=== PATIENT | male | born 1990 | race American Indian/Alaskan Native ===

== ENCOUNTER 2018-04-15 13:35 | Emergency (ER) | payer BC ==
[2018-04-15 13:57] VITALS: BP 122/74; PULSE 81; TEMP 98; O2SAT 97
--- NOTE | 2018-04-15 14:47 | C.PDOC ---
History Of Present Illness 27-year-old male presents to the ED complaining of left lower leg pain onset 4 days ago. Denies any fall or blunt trauma. Patient notes the pain began while at work, where he stands for prolonged periods of time. Sunday he noticed some swelling near the front of his dumas. He denies having prior episodes of similar pain in the past. Otherwise denies any calf pain/swelling, numbness, tingling, or focal weakness. Time Seen by Provider: 04/15/18 14:34 Chief Complaint (Nursing): Lower Extremity Problem/Injury History Per: Patient History/Exam Limitations: no limitations Onset/Duration Of Symptoms: Days Current Symptoms Are (Timing): Still Present Past Medical History Reviewed: Historical Data, Nursing Documentation, Vital Signs Vital Signs: Last Vital Signs Temp 98 F 04/15/18 13:55 Pulse 81 04/15/18 13:55 Resp 20 04/15/18 15:16 BP 122/74 04/15/18 13:55 Pulse Ox 97 04/15/18 15:08 - Medical History PMH: No Chronic Diseases Family History: States: No Known Family Hx - Social History Hx Tobacco Use: No Hx Alcohol Use: No Hx Substance Use: No Review Of Systems Except As Marked, All Systems Reviewed And Found Negative. Musculoskeletal: Positive for: Leg Pain (left udmas). Negative for: Other (calf pain/swelling) Neurological: Negative for: Weakness, Numbness, Incoordination Physical Exam - Physical Exam Appears: Well, Non-toxic, No Acute Distress Skin: Normal Color, Warm, No Rash Head: Atraumatic, Normacephalic Eye(s): bilateral: Normal Inspection Oral Mucosa: Moist Neck: Normal ROM, Supple Chest: Symmetrical Respiratory: No Accessory Muscle Use Extremity: Normal ROM, No Tenderness, No Calf Tenderness (or calf swelling), No Deformity, Swelling (mild swelling to the left anterior tibia) Pulses: Left Dorsalis Pedis: Normal, Right Dorsalis Pedis: Normal Neurological/Psych: Oriented x3, Normal Speech, Other (No focal deficits) ED Course And Treatment O2 Sat by Pulse Oximetry: 97 (RA) Pulse Ox Interpretation: Normal Medical Decision Making Medical Decision Making: Plan: --X-ray left tib/fib --Motrin 600 mg PO No signs of DVT or arterial insufficency. The xrays are negative and the physical exam is consistent with dumas splints. Disposition - Disposition Referrals: Monika Last MD [Staff Provider] - Disposition: HOME/ ROUTINE Disposition Time: 15:07 Condition: GOOD Additional Instructions: Follow up with the medical doctor/clinic within 1-2 days without fail. Return if worsened. 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 - Scribe Statement The provider has reviewed the documentation as recorded by the Scribe (Leda Crenshaw) All medical record entries made by the Scribe were at my direction and personally dictated by me. I have reviewed the chart and agree that the record accurately reflects my personal performance of the history, physical exam, medical decision making, and the department course for this patient. I have also personally directed, reviewed, and agree with the discharge instructions and disposition.
--- NOTE | 2018-04-15 15:01 | RAD ---
PROCEDURE: Radiographs of the left tibia and fibula. HISTORY: pain to the dumas COMPARISON: None available. TECHNIQUE: Frontal and lateral views obtained. FINDINGS: BONES: No fracture or destructive lesion. JOINT SPACES: Unremarkable. OTHER FINDINGS: None. IMPRESSION: Unremarkable radiographs of the left tibia and fibula.
[2018-04-15 15:16] VITALS: RESP 20
== END 2018-04-15 15:16 | disposition home or self-care (01) ==
LOC: C.ER 13:35
DX: S86.892A Other injury of other muscle(s) and tendon(s) at lower leg level, left leg, initial encounter (principal); X50.1XXA Overexertion from prolonged static or awkward postures, initial encounter; Y92.89 Other specified places as the place of occurrence of the external cause; Y99.8 Other external cause status

== ENCOUNTER 2018-04-22 19:26 | Emergency (ER) | payer BC ==
[2018-04-22 19:42] VITALS: BP 136/86; PULSE 79; RESP 14; TEMP 98.5; O2SAT 98
--- NOTE | 2018-04-22 20:27 | C.PDOC ---
History Of Present Illness 27 year old male presents to the ED with complaints of left leg pain for 1 week. Patient was seen here and given a prescription for naproxen. He reports taking it every other day with mild relief. States he has to be on his feet all day for work, and is continuing to have pain. Today patient hit his leg against corner of a wall, which aggravated the pain, and is requesting medication for exacerbation of pain. Otherwise denies any numbness, tingling, or extremity weakness. Time Seen by Provider: 04/22/18 19:46 Chief Complaint (Nursing): Lower Extremity Problem/Injury History Per: Patient History/Exam Limitations: no limitations Onset/Duration Of Symptoms: Days Current Symptoms Are (Timing): Still Present Past Medical History Reviewed: Historical Data, Nursing Documentation, Vital Signs Vital Signs: Last Vital Signs Temp 98.5 F 04/22/18 19:38 Pulse 79 04/22/18 19:38 Resp 14 04/22/18 19:38 BP 136/86 04/22/18 19:38 Pulse Ox 98 04/22/18 21:09 - Medical History PMH: No Chronic Diseases Surgical History: No Surg Hx Family History: States: No Known Family Hx - Social History Hx Tobacco Use: No Hx Alcohol Use: Yes Hx Substance Use: Yes - Immunization History Hx Tetanus Toxoid Vaccination: No Hx Influenza Vaccination: No Hx Pneumococcal Vaccination: No Review Of Systems Except As Marked, All Systems Reviewed And Found Negative. Musculoskeletal: Positive for: Leg Pain Skin: Negative for: Lesions, Bruising Neurological: Negative for: Weakness, Numbness, Incoordination Physical Exam - Physical Exam Appears: Well, Non-toxic, No Acute Distress Skin: Warm, Dry, No Rash Head: Atraumatic, Normacephalic Eye(s): bilateral: Normal Inspection Oral Mucosa: Moist Neck: Normal ROM, Supple Extremity: Normal ROM, Tenderness (To the left distal anterior tibia), Capillary Refill (< 2 sec), No Deformity, No Swelling (or erythema), No Other ( ecchymosis) Pulses: Left Dorsalis Pedis: Normal, Right Dorsalis Pedis: Normal Neurological/Psych: Oriented x3, Normal Speech, Normal Motor, Normal Sensation, Other (No focal deficits) ED Course And Treatment O2 Sat by Pulse Oximetry: 98 (room air) Pulse Ox Interpretation: Normal - Other Rad X-Ray L Tib/Fib X-Ray: Interpreted by Me, Viewed By Me Interpretation: (-) fracture or dislocation Medical Decision Making Medical Decision Making: Impression: Atraumatic left leg pain Plan: * Motrin PO * X-Ray Left Tib/Fib Progress/Updates: Patient remained afebrile alert and oriented with stable vital signs during ER evaluation. On re-examination, patient is resting comfortably in no acute distress. Patient feels comfortable going home and will be discharged. Patient given follow up instructions. Instructed to return to ER if symptoms worsen or new symptoms arise. Disposition Counseled Patient/Family Regarding: Diagnosis, Need For Followup, Rx Given - Disposition Referrals: Grecia Ansari MD [Staff Provider] - [facility] [Outside] [facility] [place] [Outside] Disposition: HOME/ ROUTINE Disposition Time: 20:24 Condition: GOOD Additional Instructions: Your xray was normal, no fracture. Please apply ice to area 15 minutes three times a day. Take Motrin as needed for pain every 6 hours, with food to not upset stomach. Follow up with orthopedic if pain persists over one week. 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 - Scribe Statement The provider has reviewed the documentation as recorded by the Scribe (Leda Crenshaw) All medical record entries made by the Scribe were at my direction and personally dictated by me. I have reviewed the chart and agree that the record accurately reflects my personal performance of the history, physical exam, medical decision making, and the department course for this patient. I have also personally directed, reviewed, and agree with the discharge instructions and disposition.
--- NOTE | 2018-04-23 10:11 | RAD ---
Date of service: 04/22/2018 PROCEDURE: Radiographs of the left tibia and fibula. HISTORY: patient request, has pain to leg, injury work COMPARISON: None available. TECHNIQUE: Frontal and lateral views obtained. FINDINGS: BONES: No fracture or destructive lesion. JOINT SPACES: Unremarkable. OTHER FINDINGS: Achilles tendon insertional enthesophyte noted. IMPRESSION: Achilles tendon insertional enthesophyte noted. Otherwise unremarkable. No fracture or osseous destruction
== END 2018-04-22 20:44 | disposition home or self-care (01) ==
LOC: C.ER 19:26
DX: S86.892A Other injury of other muscle(s) and tendon(s) at lower leg level, left leg, initial encounter (principal); W22.01XA Walked into wall, initial encounter

== ENCOUNTER 2018-06-19 15:30 | Observation (INO) | payer BC ==
--- NOTE | 2018-06-19 16:28 | C.PDOC ---
History Of Present Illness 28 year old male sent from [facility] for evaluation of headache, stiff neck, and photophobia(tolerating ambient light) that began today. Patient states he occasionally feels dizziness and chills, he notes he recently came back from [place] 4 days ago and since 2 days ago he has felt tired, out of breath, and weak as if he were getting sick. Patient has a Hx of HIV with undetectable viral load and no Hx of AIDS defining illness. Denies Hx of similar headaches, fever, nausea, or vomiting Time Seen by Provider: 06/19/18 16:10 Chief Complaint (Nursing): Headache History Per: Patient History/Exam Limitations: no limitations Onset/Duration Of Symptoms: Hrs Current Symptoms Are (Timing): Still Present Preceeding Symptoms: None Associated Symptoms: Photophobia (tolerating ambient light). denies: Blurred Vision, Nausea, Vomiting, Extremity Weakness Recent travel outside of the [place]: No Past Medical History Reviewed: Historical Data, Nursing Documentation, Vital Signs Vital Signs: Last Vital Signs Temp 98.4 F 06/19/18 15:41 Pulse 61 06/19/18 15:41 Resp 16 06/19/18 15:41 BP 143/81 06/19/18 15:41 Pulse Ox 100 06/19/18 18:53 - Medical History PMH: HIV Denies: Chronic Kidney Disease Family History: States: Unknown Family Hx - Social History Hx Tobacco Use: No Hx Alcohol Use: Yes Hx Substance Use: Yes - Immunization History Hx Tetanus Toxoid Vaccination: No Hx Influenza Vaccination: No Hx Pneumococcal Vaccination: No Review Of Systems Except As Marked, All Systems Reviewed And Found Negative. Constitutional: Positive for: Chills, Malaise. Negative for: Fever Cardiovascular: Negative for: Chest Pain, Palpitations Respiratory: Negative for: Cough, Shortness of Breath Gastrointestinal: Negative for: Nausea, Vomiting Musculoskeletal: Positive for: Other (Neck stiffness) Neurological: Positive for: Headache, Dizziness, Other (Photophobia but tolerating ambient light). Negative for: Weakness, Numbness Physical Exam - Physical Exam Appears: Non-toxic Skin: Normal Color, Warm, Dry Head: Atraumatic, Normacephalic Eye(s): bilateral: Normal Inspection, PERRL, EOMI Oral Mucosa: Moist Neck: Normal, Supple Chest: Symmetrical, No Tenderness Cardiovascular: Rhythm Regular Respiratory: Normal Breath Sounds, No Rales, No Rhonchi, No Wheezing Gastrointestinal/Abdominal: Soft, No Tenderness Back: No CVA Tenderness Extremity: Normal ROM (x4) Neurological/Psych: Oriented x3, Normal Speech, Normal Motor, Normal Sensation ED Course And Treatment - Laboratory Results Result Diagrams: 06/19/18 17:07 06/19/18 17:07 O2 Sat by Pulse Oximetry: 100 (Room air) Pulse Ox Interpretation: Normal Progress - Re-Evaluation Re-evaluation Note: 06/19/18 18:15 APPEARS COMFORTABLE NAD. PS FEELS BETTER, HERNANDEZ RESOLVED. NO PHOTOPHOBIA, NECK SUPPLE. NEURO NO FOCAL DEF, UNCH PRIOR. PENDING HEAD CT NO CLINICAL SIGNS BACTERIAL MENINGITIS. RISKS/BENEFITS SPINAL TAP D/W PATIENT, VOICES UNDERSTANDING. PENDING CT. 06/19/18 18:52 D/W DR HERNANDEZ AWARE OF ER FINDINGS. ADVISES OBS, CONT ANTIVIRAL 06/19/18 18:56 D/W DR STEPHANIE MARINELLI [employer] WILL ADMIT - Data Reviewed Data Reviewed: Lab, Diagnostic imaging, Old records Medical Decision Making Medical Decision Making: Plan: * CT head * Blood work * Urinalysis * Decadron * Depacon * Mag sulfate * Reglan * Toradol * IV fluids Disposition Counseled Patient/Family Regarding: Studies Performed, Diagnosis - Disposition Disposition: HOSPITALIZED Disposition Time: 18:58 Condition: STABLE Forms: [facility] (Sinhala) - POA Present On Arrival: None - Clinical Impression Clinical Impression: Headache, HIV infection - Scribe Statement The provider has reviewed the documentation as recorded by the Scribeleanor Sevilla All medical record entries made by the Scribe were at my direction and personally dictated by me. I have reviewed the chart and agree that the record accurately reflects my personal performance of the history, physical exam, medical decision making, and the department course for this patient. I have also personally directed, reviewed, and agree with the discharge instructions and disposition.
[2018-06-19] MEDS ORDERED: Dexamethasone 4 mg/1 ml IVP STA (16:29)
[2018-06-19] MEDS ORDERED: Magnesium Sulfate 1 gm in D5W 1 GM/100 ML BAG IVPB STA (16:29)
[2018-06-19] MEDS ORDERED: Sodium Chloride 0.9% 1,000 ML IV ONE (16:30)
[2018-06-19] MEDS ORDERED: Magnesium Sulfate 1 gm in D5W 1 GM/100 ML BAG IVPB ONE (16:49)
[2018-06-19] MEDS ORDERED: Dexamethasone 4 mg/1 ml ONE (16:49)
[2018-06-19 16:51] LABS: URINE BILIRUBIN NEGATIVE (NEGATIVE); URINE BLOOD NEGATIVE (NEGATIVE); URINE CLARITY Clear (Clear); URINE COLOR Straw (YELLOW); URINE GLUCOSE (UA) NORMAL (Normal); URINE LEUKOCYTE ESTERASE NEG Leu/uL (Negative); URINE PROTEIN NEGATIVE (NEGATIVE); URINE UROBILINOGEN NORMAL mg/dL (0.2-1.0)
--- NOTE | 2018-06-19 16:53 | CT ---
Date of service: 06/19/2018 PROCEDURE: CT HEAD WITHOUT CONTRAST. HISTORY: Headache HO HIV COMPARISON: None available. TECHNIQUE: Axial computed tomography images were obtained through the head/brain without intravenous contrast. Radiation dose: Total exam DLP = 1052.07 mGy-cm. This CT exam was performed using one or more of the following dose reduction techniques: Automated exposure control, adjustment of the mA and/or kV according to patient size, and/or use of iterative reconstruction technique. FINDINGS: HEMORRHAGE: No intracranial hemorrhage. BRAIN: Normal barrett-white matter differentiation and density are appreciated throughout the cerebrum and cerebellum with the brainstem appearing unremarkable as well. There is no mass effect. There is no suspicious extra-axial fluid collection and the midline brain anatomy appears diffusely unremarkable. VENTRICLES: Unremarkable. No hydrocephalus. CALVARIUM: Unremarkable. PARANASAL SINUSES: Unremarkable as visualized. No significant inflammatory changes. MASTOID AIR CELLS: Unremarkable as visualized. No inflammatory changes. OTHER FINDINGS: None. IMPRESSION: Unremarkable noncontrast head CT.
[2018-06-19] MEDS ORDERED: Valproate 500 MG in Sodium Chloride 0.9% 100 ML IVPB STA (17:07)
[2018-06-19 17:11] LABS: BASO % 0.9 % (0.0-2.0); EOS % 0.6 % (0.0-4.0); HEMOGLOBIN 14.7 g/dL (12.0-18.0); LYMPH # 1.7 K/uL (1.0-4.3); LYMPH % 62.4 % (20.0-40.0); MEAN CELL VOLUME 99.8 fL (80.0-94.0); MEAN CORPUSCULAR HEMOGLOBIN 34.2 pg (27.0-31.0); MEAN CORPUSCULAR HGB CONC 34.2 g/dL (33.0-37.0); MEAN PLATELET VOLUME 8.5 fL (7.2-11.7); MONO # 0.2 K/uL (0.0-0.8); MONO % 8.4 % (0.0-10.0); NEUT # 0.8 K/uL (1.8-7.0); NEUT % 27.7 % (50.0-75.0); NRBC % 0.4 % (0.0-2.0); RBC 4.3 Mil/uL (4.40-5.90); RED CELL DISTRIBUTION WIDTH 12.7 % (11.5-14.5); WHITE BLOOD COUNT 2.7 K/uL (4.8-10.8)
[2018-06-19 17:22] LABS: ALB/GLOB RATIO 1.7 (1.0-2.1); ALBUMIN 4.4 g/dL (3.5-5.0); ALT/SGPT 30 U/L (21-72); AST/SGOT 28 U/L (17-59); BLOOD UREA NITROGEN 11 mg/dL (9-20); CALCIUM 9.5 mg/dl (8.6-10.4); GFR NON-AFRICAN AMERICAN > 60
--- NOTE | 2018-06-19 17:53 | RAD ---
HISTORY: WEAKNESS, HO HIV COMPARISON: None available. TECHNIQUE: Chest PA and lateral FINDINGS: LUNGS: No focal consolidation. Tiny scattered probable calcified granulomas. Please note that chest x-ray has limited sensitivity for the detection of pulmonary masses. PLEURA: No significant pleural effusion identified. No definite pneumothorax . CARDIOVASCULAR: Heart size appears within normal limits. OSSEOUS STRUCTURES: No acute osseous abnormality identified. VISUALIZED UPPER ABDOMEN: Unremarkable. OTHER FINDINGS: Bilateral nipple rings. IMPRESSION: No focal consolidation, significant pleural effusion, or definite pneumothorax identified.
[2018-06-19] MEDS ORDERED: Iodixanol 320 MG/ML 100 ML BOTTLE IV ONE (18:44)
[2018-06-19] MEDS ORDERED: Apap-Butalbital-Caffeine 325-50-40mg Tab PO PRN (21:15)
--- NOTE | 2018-06-20 09:04 | CT ---
Date of service: 06/19/2018 PROCEDURE: CT HEAD WITH CONTRAST HISTORY: Headache. History of HIV. COMPARISON: None available. TECHNIQUE: Axial computed tomography images were obtained through the head/brain with intravenous contrast. Radiation dose: Total exam DLP = 1207 mGy-cm. This CT exam was performed using one or more of the following dose reduction techniques: Automated exposure control, adjustment of the mA and/or kV according to patient size, and/or use of iterative reconstruction technique. FINDINGS: HEMORRHAGE: No intracranial hemorrhage. BRAIN: No mass, mass effect or edema. No abnormal intracranial enhancement. No atrophy or chronic microvascular ischemic changes. VENTRICLES: Unremarkable. No hydrocephalus. CALVARIUM: Unremarkable. PARANASAL SINUSES: Unremarkable as visualized. No significant inflammatory changes. MASTOID AIR CELLS: Unremarkable as visualized. No mastoid effusion. OTHER FINDINGS: None. IMPRESSION: No acute intracranial abnormality. No enhancing nodules or ring enhancing lesions. If symptoms persist, consider correlation with MRI. These findings were preliminarily reported at 7:36 p.m. on 06/19/[address] Buster Khan from [facility].
[2018-06-20] MEDS ORDERED: EMTRICITA PO SCH ×2 (10:00)
[2018-06-20] MEDS ORDERED: [UNRECOGNIZED DRUG - OTHER] PO SCH ×2 (10:00)
[2018-06-20] MEDS ORDERED: TENOFOVIR PO SCH ×2 (10:00)
--- NOTE | 2018-06-20 10:15 | CP.PCM.PN ---
Subjective - Date & Time of Evaluation Date of Evaluation: 06/20/18 Time of Evaluation: 10:10 - Subjective Subjective: PGY3 progress note for Dr. Victor 28 year old male with past medical history of HIV on treatment presented to hospital for headache, weakness and lightheadedness that began yesterday. Patient states that he had recurrent episodes of lightheadedness/vertigo throughout the day when he was walking. No LOC or syncopal episode. Patient denied having any weakness, numbness/tingling in extremities. Patient also c/o mild right sided neck pain without stiffness or radiation. Headache also began yesterday, was located diffusely and was accompanied with minor blurry vision. Pt didn't use anything for his symptoms. Patient states he recently returned from [place] 4 days ago. Denied going on any camping trips, tick/insect bites , or outdoor activities. Pt seen and examined this morning. Denies having any HERNANDEZ, vision changes, neck pain or stiffness, F/C, CP, SOB, abd pain, N/V/D/C, rashes, extremity weakness/ numbness/tingling. Pt states he is able to walk to bathroom without lightheadedness. PMHx: stated above Sx: denies Social: occasional ETOH, tobacco use. Smokes marijuana regularly FHx: HTN, DM Objective - Vital Signs/Intake and Output Vital Signs (last 24 hours): Temp Pulse Resp BP Pulse Ox 97.5 F L 55 L 20 131/68 100 06/20/18 08:00 06/20/18 08:00 06/20/18 08:00 06/20/18 08:00 06/20/18 08:00 - Medications Medications: Current Medications Acetaminophen/Butalbital/Caffeine (Fioricet) 1 tab PO Q4 PRN PRN Reason: Headache Last Admin: 06/19/18 21:49 Dose: 1 tab Enoxaparin Sodium (Lovenox) 40 mg SC DAILY [facility] Home Med (Emtricita/Rilpivir/Tenofovir) 1 tab PO DAILY [facility] Lorazepam (Ativan) 1 mg IVP ONCE PRN PRN Reason: Anxiety - Labs Labs: 06/19/18 17:07 06/19/18 17:07 - Constitutional Appears: Non-toxic, No Acute Distress - Head Exam Head Exam: ATRAUMATIC, NORMOCEPHALIC - Eye Exam Eye Exam: EOMI Pupil Exam: NORMAL ACCOMODATION, PERRL - ENT Exam ENT Exam: Mucous Membranes Moist, Normal Oropharynx Additional comments: no rash inside mouth - Respiratory Exam Respiratory Exam: Clear to Ausculation Bilateral. absent: Accessory Muscle Use , Rales, Rhonchi, Wheezes, Respiratory Distress - Cardiovascular Exam Cardiovascular Exam: REGULAR RHYTHM, +S1, +S2. absent: Gallop, Rubs, Murmur - GI/Abdominal Exam GI & Abdominal Exam: Soft, Normal Bowel Sounds. absent: Distended, Firm, Guarding, Rigid, Tenderness, Organomegaly - Extremities Exam Extremities Exam: absent: Pedal Edema, Tenderness - Neurological Exam Neurological Exam: Alert, Awake, CN II-XII Intact, Oriented x3 Neuro motor strength exam: Left Upper Extremity: 5, Right Upper Extremity: 5, Left Lower Extremity: 5, Right Lower Extremity: 5 Additional comments: normal sensation in upper and lower extremities. - Psychiatric Exam Psychiatric exam: Normal Affect, Normal Mood - Skin Skin Exam: Dry, Intact, Normal Color, Warm. absent: Rash Assessment and Plan - Assessment and Plan (Free Text) Assessment: 28 year old male with past medical history of HIV is admitted for headache. Headache - Improved - Initial CT of head was negative. Repeat CT was also negative - On admission, pt had WBC count of 2.7 (likely due to hx of HIV). Afebrile on admission - On admission, pt received decadron 8 mg IVP, Toradol 30 mg IVP, Mag sulfate 1 gm once, Reglan, Depakote 500 mg IV and IV hydration - Neurology, Dr. Fierro consulted - ID, Dr. Abrams consulted - Will check MRI of brain HIV - Will check CD4 count and viral load - Continue home medication: Complera 200/25/300 mg QD - ID, Dr. Abrams consulted Prophylaxis - SCDs, lovenox - no GI prophylaxis indicated All orders and management per Dr. Victor
[2018-06-20] MEDS: Enoxaparin 40 mg Syringe SC SCH (10:21)
[2018-06-20 12:05] LABS: BASO % 0.5 % (0.0-2.0); HEMOGLOBIN 15.9 g/dL (12.0-18.0); LYMPH % 28.2 % (20.0-40.0); MEAN CELL VOLUME 99.3 fL (80.0-94.0); MEAN CORPUSCULAR HEMOGLOBIN 33.7 pg (27.0-31.0); MEAN CORPUSCULAR HGB CONC 33.9 g/dL (33.0-37.0); MEAN PLATELET VOLUME 9.2 fL (7.2-11.7); MONO # 0.5 K/uL (0.0-0.8); MONO % 6.6 % (0.0-10.0); NEUT # 4.6 K/uL (1.8-7.0); NEUT % 64.7 % (50.0-75.0); NRBC % 0.1 % (0.0-2.0); RBC 4.71 Mil/uL (4.40-5.90); RED CELL DISTRIBUTION WIDTH 12.4 % (11.5-14.5)
[2018-06-20 12:09] LABS: WHITE BLOOD COUNT 7.1 K/uL (4.8-10.8)
[2018-06-20 12:14] LABS: INR 1.1; PROTHROMBIN TIME 11.8 SECONDS (9.7-12.2)
[2018-06-20 12:20] LABS: ALB/GLOB RATIO 1.7 (1.0-2.1); ALBUMIN 4.7 g/dL (3.5-5.0); ALT/SGPT 33 U/L (21-72); AST/SGOT 33 U/L (17-59); BLOOD UREA NITROGEN 9 mg/dL (9-20); CALCIUM 9.9 mg/dl (8.6-10.4); GFR NON-AFRICAN AMERICAN > 60
--- NOTE | 2018-06-20 15:22 | MRI ---
Date of service: 06/20/2018 PROCEDURE: MRI BRAIN WITHOUT CONTRAST HISTORY: headache COMPARISON: None available. TECHNIQUE: Multiplanar, multisequence MR images of the brain were obtained without intravenous contrast enhancement. FINDINGS: HEMORRHAGE: None DWI: No evidence of an acute or early subacute infarction. BRAIN PARENCHYMA: No mass effect or edema. No atrophy or chronic microvascular ischemic changes. VENTRICLES: Unremarkable. No hydrocephalus. CRANIUM: Unremarkable. ORBITS: Grossly unremarkable. PARANASAL SINUSES/MASTOIDS: Clear VASCULAR SYSTEM: Skull base flow voids intact. OTHER FINDINGS: None. IMPRESSION: Unremarkable non contrast enhanced MRI of the brain.
--- NOTE | 2018-06-20 17:10 | CP.PCM.CON ---
History of Present Illness - History of Present Illness History of Present Illness: PGY-2 neurology consult note for Dr Gonzalez Mr Monique is a 28yo M with a PMHx of HIV on therapy w/ undetectable viral load and migraines who presented for headache and lightheadedness x1 day. Patient states that he had recurrent episodes of lightheadedness throughout the day when he was walking which causes him to stop frequently so he could sit down. No LOC or syncopal episode and he denied room spinning sensation. Patient also c /o mild right sided neck pain without stiffness or radiation upon presentation, however upon our examination today patient did not complain of neck stiffness. Headache also began yesterday, was located diffusely and was accompanied with minor blurry vision - he's had migraines in the past and states he gets them about twice a year. Pt didn't use anything for his symptoms. Patient states he recently returned from [place] 4 days ago. Denied going on any camping trips , tick/insect bites, or outdoor activities. PMHx: HIV w/ undetectable viral load, migraines Sx: denies Social: occasional ETOH, tobacco use. Smokes marijuana regularly FHx: HTN, DM Review of Systems - Constitutional Constitutional: absent: Chills, Fever - EENT Eyes: absent: Blind Spots, Blurred Vision Ears: absent: Tinnitus - Cardiovascular Cardiovascular: absent: Chest Pain - Respiratory Respiratory: absent: Cough, Dyspnea - Gastrointestinal Gastrointestinal: absent: Abdominal Pain, Diarrhea - Genitourinary Genitourinary: absent: Dysuria - Neurological Neurological: absent: Abnormal Gait, Confusion, Convulsions, Dizziness, Numbness , Sensory Deficit, Syncope, Weakness Past Patient History - Past Social History Smoking Status: Former Smoker - CARDIAC Hx Cardiac Disorders: No - PULMONARY Hx Respiratory Disorders: No - NEUROLOGICAL Hx Neurological Disorder: No - HEENT Hx HEENT Problems: No - RENAL Hx Chronic Kidney Disease: No - ENDOCRINE/METABOLIC Hx Endocrine Disorders: No - HEMATOLOGICAL/ONCOLOGICAL Hx Human Immunodeficiency Virus (HIV): Yes - INTEGUMENTARY Hx Dermatological Problems: No - MUSCULOSKELETAL/RHEUMATOLOGICAL Hx Musculoskeletal Disorders: No - GASTROINTESTINAL Hx Gastrointestinal Disorders: No - GENITOURINARY/GYNECOLOGICAL Hx Genitourinary Disorders: No - PSYCHIATRIC Hx Substance Use: Yes - SURGICAL HISTORY Hx Surgeries: No - ANESTHESIA Hx Anesthesia: No Meds Allergies/Adverse Reactions: Allergies Allergy/AdvReac Type Severity Reaction Status Date / Time No Known Allergies Allergy Verified 06/19/18 15:45 - Medications Medications: Current Medications Acetaminophen/Butalbital/Caffeine (Fioricet) 1 tab PO Q4 PRN PRN Reason: Headache Last Admin: 06/19/18 21:49 Dose: 1 tab Enoxaparin Sodium (Lovenox) 40 mg SC DAILY KEMI Last Admin: 06/20/18 10:21 Dose: 40 mg Home Med (Emtricita/Rilpivir/Tenofovir) 1 tab PO DAILY KEMI Lorazepam (Ativan) 1 mg IVP ONCE PRN PRN Reason: Anxiety Physical Exam - Constitutional Appears: Well, No Acute Distress - Head Exam Head Exam: NORMAL INSPECTION - Eye Exam Eye Exam: EOMI, PERRL. absent: Nystagmus, Scleral icterus - ENT Exam ENT Exam: Mucous Membranes Moist - Respiratory Exam Respiratory Exam: Clear to Auscultation Bilateral, NORMAL BREATHING PATTERN. absent: Rales, Rhonchi, Wheezes - Cardiovascular Exam Cardiovascular Exam: REGULAR RHYTHM, +S1, +S2. absent: Tachycardia, JVD, Systolic Murmur - GI/Abdominal Exam GI & Abdominal Exam: Normal Bowel Sounds, Soft. absent: Distended, Tenderness - Extremities Exam Extremities exam: Positive for: normal inspection - Neurological Exam Neurological exam: Alert, CN II-XII Intact, Normal Gait, Oriented x3, Reflexes Normal - Expanded Neurological Exam Expanded Patient oriented to: person, place, time Speech: Fluid Speech Cranial nerves: EOM's Intact: Normal, Facial Sensation: Normal, Gag Reflex: Normal, Nystagmus: Normal, Tongue Deviation: Normal Cerebellar Function: Finger to Nose: Normal, Heel to Chou: Normal, Romberg: Normal Upper motor neuron: Babinski Sign: Normal, Jose Neglect: Normal, Pronator Drift : Normal, Sensory Extinction: Normal Sensory exam: Lower Extremity 2 Point Discrimination: Normal, Lower Extremity Light Touch: Normal, Lower Extremity Pin Prick: Normal, Lower Extremity Temperature: Normal, Upper Extremity 2 Point Discrimination: Normal, Upper Extremity Light Touch: Normal, Upper Extremity Pin Prick: Normal, Upper Extremity Temperature: Normal Neuro motor strength exam: Left Upper Extremity: 5, Right Upper Extremity: 5, Left Lower Extremity: 5, Right Lower Extremity: 5 DTR: Patellar Left: 2+, Patellar Right: 2+ Coma Scale Eye Opening: SPONTANEOUS Coma Scale Motor Response: OBEYS COMMANDS Coma Scale Verbal: Oriented Coma Scale Total: 15 Results - Vital Signs Recent Vital Signs: Last Vital Signs Temp 97.9 F 06/20/18 14:00 Pulse 53 L 06/20/18 14:00 Resp 20 06/20/18 14:00 BP 110/57 L 06/20/18 14:00 Pulse Ox 100 06/20/18 14:00 - Labs Result Diagrams: 06/20/18 12:00 06/20/18 12:00 Labs: Laboratory Results - last 24 hr 06/19/18 06/19/18 06/20/18 17:07 17:07 12:00 WBC 2.7 L 7.1 D RBC 4.30 L 4.71 Hgb 14.7 15.9 Hct 42.9 46.8 MCV 99.8 H 99.3 H MCH 34.2 H 33.7 H MCHC 34.2 33.9 RDW 12.7 12.4 Plt Count 168 200 MPV 8.5 9.2 Neut % (Auto) 27.7 L 64.7 Lymph % (Auto) 62.4 H 28.2 [place] % (Auto) 8.4 6.6 Eos % (Auto) 0.6 0.0 Baso % (Auto) 0.9 0.5 Neut # (Auto) 0.8 L 4.6 Lymph # (Auto) 1.7 2.0 [place] # (Auto) 0.2 0.5 Eos # (Auto) 0.0 0.0 Baso # (Auto) 0.0 0.0 PT INR APTT Sodium 141 Potassium 4.8 Chloride 105 Carbon Dioxide 32 H Anion Gap 10 BUN 11 Creatinine 0.8 Est GFR ( Amer) > 60 Est GFR (Non-Af Amer) > 60 Random Glucose 85 Calcium 9.5 Phosphorus Magnesium Total Bilirubin 0.8 AST 28 ALT 30 Alkaline Phosphatase 102 Total Protein 7.1 Albumin 4.4 Globulin 2.7 Albumin/Globulin Ratio 1.7 06/20/18 06/20/18 12:00 12:00 WBC RBC Hgb Hct MCV MCH MCHC RDW Plt Count MPV Neut % (Auto) Lymph % (Auto) [place] % (Auto) Eos % (Auto) Baso % (Auto) Neut # (Auto) Lymph # (Auto) [place] # (Auto) Eos # (Auto) Baso # (Auto) PT 11.8 INR 1.1 APTT 42 H Sodium 142 Potassium 4.5 Chloride 103 Carbon Dioxide 28 Anion Gap 16 BUN 9 Creatinine 0.8 Est GFR ( Amer) > 60 Est GFR (Non-Af Amer) > 60 Random Glucose 88 Calcium 9.9 Phosphorus 3.7 Magnesium 2.1 Total Bilirubin 2.0 H AST 33 ALT 33 Alkaline Phosphatase 85 Total Protein 7.6 Albumin 4.7 Globulin 2.9 Albumin/Globulin Ratio 1.7 Assessment & Plan - Assessment and Plan (Free Text) Plan: Mr Monique is a 28yo M with a PMHx of HIV on therapy w/ undetectable viral load and migraines who presented for headache and lightheadedness x1 day: Acute Migraine -Symptoms likely related to migraine w/ visual disturbance, patient w/ hx of migraine, imaging collected has been negative, no neurological deficits noted, no seizure activity -F/U CD4 count and viral load, although this presentation is not consistent with HIV encephalopathy -CT head w/ contrast: * No acute intracranial abnormality. No enhancing nodules or ring enhancing lesions. If symptoms persist, consider correlation with MRI. -CT head w/o contrast: * Unremarkable noncontrast head CT. -MRI Brain w/o contrast: * Unremarkable non contrast enhanced MRI of the brain. -To treat migraines after onset of migraine: sumatriptan 50mg po q2days as needed -Start vitamin B6 50mg po qd -Continue fiorocet 1 tab po q4h prn Case discussed with Dr Gonzalez
--- NOTE | 2018-06-20 18:47 | CP.PCM.CON ---
History of Present Illness - History of Present Illness History of Present Illness: 28yo M with a PMHx of HIV on therapy since 2011 presents with headaches Last CD4 unknown but believed to be > 200 last Viral load unknown recently stoped his HAART rx c/o bifrontal headache , no visual disturbance or neck stiffness recent trip to [facility] no ill contacts PMHx: HIV w/ undetectable viral load, migraines Sx: denies Social: occasional ETOH, tobacco use. FHx: HTN, DM Review of Systems - Constitutional Constitutional: absent: Chills, Fever - EENT Eyes: absent: Blind Spots, Blurred Vision Ears: absent: Tinnitus - Cardiovascular Cardiovascular: absent: Chest Pain - Respiratory Respiratory: absent: Cough, Dyspnea - Gastrointestinal Gastrointestinal: absent: Abdominal Pain, Diarrhea - Genitourinary Genitourinary: absent: Dysuria - Neurological Neurological: absent: Abnormal Gait, Confusion, Convulsions, Dizziness, Numbness , Sensory Deficit, Syncope, Weakness Past Patient History - Past Social History Smoking Status: Former Smoker - CARDIAC Hx Cardiac Disorders: No - PULMONARY Hx Respiratory Disorders: No - NEUROLOGICAL Hx Neurological Disorder: No - HEENT Hx HEENT Problems: No - RENAL Hx Chronic Kidney Disease: No - ENDOCRINE/METABOLIC Hx Endocrine Disorders: No - HEMATOLOGICAL/ONCOLOGICAL Hx Human Immunodeficiency Virus (HIV): Yes - INTEGUMENTARY Hx Dermatological Problems: No - MUSCULOSKELETAL/RHEUMATOLOGICAL Hx Musculoskeletal Disorders: No - GASTROINTESTINAL Hx Gastrointestinal Disorders: No - GENITOURINARY/GYNECOLOGICAL Hx Genitourinary Disorders: No - PSYCHIATRIC Hx Substance Use: Yes - SURGICAL HISTORY Hx Surgeries: No - ANESTHESIA Hx Anesthesia: No Meds Allergies/Adverse Reactions: Allergies Allergy/AdvReac Type Severity Reaction Status Date / Time No Known Allergies Allergy Verified 06/19/18 15:45 - Medications Medications: Current Medications Acetaminophen/Butalbital/Caffeine (Fioricet) 1 tab PO Q4 PRN PRN Reason: Headache Last Admin: 06/19/18 21:49 Dose: 1 tab Enoxaparin Sodium (Lovenox) 40 mg SC DAILY KEMI Last Admin: 06/20/18 10:21 Dose: 40 mg Home Med (Emtricita/Rilpivir/Tenofovir) 1 tab PO DAILY KEMI Lorazepam (Ativan) 1 mg IVP ONCE PRN PRN Reason: Anxiety Pyridoxine HCl (Vitamin B6) 25 mg PO DAILY KEMI Sumatriptan Succinate (Imitrex Tab) 50 mg PO Q2D PRN PRN Reason: Migraine headache Physical Exam - Constitutional Appears: Non-toxic, Chronically Ill - Head Exam Head Exam: NORMOCEPHALIC - Eye Exam Eye Exam: PERRL. absent: Scleral icterus - ENT Exam ENT Exam: Mucous Membranes Dry - Neck Exam Neck exam: Negative for: Lymphadenopathy - Respiratory Exam Respiratory Exam: Decreased Breath Sounds - Cardiovascular Exam Cardiovascular Exam: REGULAR RHYTHM - GI/Abdominal Exam GI & Abdominal Exam: Diminished Bowel Sounds, Soft. absent: Tenderness - Rectal Exam Rectal Exam: Deferred - Exam Exam: NORMAL INSPECTION - Extremities Exam Extremities exam: Positive for: pedal pulses present. Negative for: calf tenderness, pedal edema, tenderness - Back Exam Back exam: absent: CVA tenderness (L), CVA tenderness (R) - Neurological Exam Neurological exam: Alert, CN II-XII Intact, Oriented x3, Reflexes Normal - Psychiatric Exam Psychiatric exam: Normal Mood - Skin Skin Exam: Dry, Intact Results - Vital Signs Recent Vital Signs: Last Vital Signs Temp 97.9 F 06/20/18 14:00 Pulse 53 L 06/20/18 14:00 Resp 20 06/20/18 14:00 BP 110/57 L 06/20/18 14:00 Pulse Ox 100 06/20/18 14:00 - Labs Result Diagrams: 06/20/18 12:00 06/20/18 12:00 Labs: Laboratory Results - last 24 hr 06/20/18 06/20/18 06/20/18 12:00 12:00 12:00 WBC 7.1 D RBC 4.71 Hgb 15.9 Hct 46.8 MCV 99.3 H MCH 33.7 H MCHC 33.9 RDW 12.4 Plt Count 200 MPV 9.2 Neut % (Auto) 64.7 Lymph % (Auto) 28.2 [place] % (Auto) 6.6 Eos % (Auto) 0.0 Baso % (Auto) 0.5 Neut # (Auto) 4.6 Lymph # (Auto) 2.0 [place] # (Auto) 0.5 Eos # (Auto) 0.0 Baso # (Auto) 0.0 PT 11.8 INR 1.1 APTT 42 H Sodium 142 Potassium 4.5 Chloride 103 Carbon Dioxide 28 Anion Gap 16 BUN 9 Creatinine 0.8 Est GFR ( Amer) > 60 Est GFR (Non-Af Amer) > 60 Random Glucose 88 Calcium 9.9 Phosphorus 3.7 Magnesium 2.1 Total Bilirubin 2.0 H AST 33 ALT 33 Alkaline Phosphatase 85 Total Protein 7.6 Albumin 4.7 Globulin 2.9 Albumin/Globulin Ratio 1.7 RPR 06/20/18 12:00 WBC RBC Hgb Hct MCV MCH MCHC RDW Plt Count MPV Neut % (Auto) Lymph % (Auto) [place] % (Auto) Eos % (Auto) Baso % (Auto) Neut # (Auto) Lymph # (Auto) [place] # (Auto) Eos # (Auto) Baso # (Auto) PT INR APTT Sodium Potassium Chloride Carbon Dioxide Anion Gap BUN Creatinine Est GFR ( Amer) Est GFR (Non-Af Amer) Random Glucose Calcium Phosphorus Magnesium Total Bilirubin AST ALT Alkaline Phosphatase Total Protein Albumin Globulin Albumin/Globulin Ratio RPR Nonreactive Assessment & Plan (1) HIV infection Status: Acute (2) Headache Status: Acute - Assessment and Plan (Free Text) Assessment: consider LP, MRI if not done check cultures T cells and viral load will follow rx reordered
[2018-06-20] MEDS ORDERED: Emtricitabine-Tenofovir 200 mg-300 mg Tab PO SCH (19:00)
--- NOTE | 2018-06-21 07:38 | CP.PCM.PN ---
Subjective - Date & Time of Evaluation Date of Evaluation: 06/21/18 Time of Evaluation: 08:00 - Subjective Subjective: PGY2 progress note for Dr. Victor Patient was seen and examined at bedside in the AM. Patient states he is feeling well and is ready to go home. Patient denies chest pain, shortness of breath, dizziness, headache, nausea, vomiting, diarrhea or constipation. Objective - Vital Signs/Intake and Output Vital Signs (last 24 hours): Temp Pulse Resp BP Pulse Ox 98 F 59 L 18 133/67 100 06/21/18 00:00 06/21/18 00:00 06/21/18 00:00 06/21/18 00:00 06/21/18 00:00 - Medications Medications: Current Medications Acetaminophen/Butalbital/Caffeine (Fioricet) 1 tab PO Q4 PRN PRN Reason: Headache Last Admin: 06/19/18 21:49 Dose: 1 tab Dolutegravir Sodium (Tivicay) 50 mg PO Q24H KEMI PRN Reason: Protocol Last Admin: 06/20/18 22:23 Dose: 50 mg Emtricitabine/Tenofovir (Truvada 200 Mg-300 Mg) 1 tab PO Q24H KEMI PRN Reason: Protocol Last Admin: 06/20/18 22:24 Dose: 1 tab Enoxaparin Sodium (Lovenox) 40 mg SC DAILY COUNTS INCLUDE 234 BEDS AT THE [facility] Last Admin: 06/20/18 10:21 Dose: 40 mg Lorazepam (Ativan) 1 mg IVP ONCE PRN PRN Reason: Anxiety Pyridoxine HCl (Vitamin B6) 25 mg PO DAILY KEMI Sumatriptan Succinate (Imitrex Tab) 50 mg PO Q2D PRN PRN Reason: Migraine headache - Labs Labs: 06/20/18 12:00 06/20/18 12:00 PT 11.8 SECONDS (9.7-12.2) 06/20/18 12:00 INR 1.1 06/20/18 12:00 APTT 42 SECONDS (21-34) H 06/20/18 12:00 - Constitutional Appears: No Acute Distress - Head Exam Head Exam: ATRAUMATIC, NORMAL INSPECTION - Eye Exam Eye Exam: EOMI, Normal appearance, PERRL Pupil Exam: NORMAL ACCOMODATION - ENT Exam ENT Exam: Mucous Membranes Moist - Respiratory Exam Respiratory Exam: Clear to Ausculation Bilateral, NORMAL BREATHING PATTERN - Cardiovascular Exam Cardiovascular Exam: REGULAR RHYTHM, +S1, +S2 - GI/Abdominal Exam GI & Abdominal Exam: Soft, Normal Bowel Sounds. absent: Tenderness - Extremities Exam Extremities Exam: Normal Inspection - Neurological Exam Neurological Exam: Alert, Awake, Oriented x3 - Psychiatric Exam Psychiatric exam: Normal Affect, Normal Mood - Skin Skin Exam: Normal Color Assessment and Plan - Assessment and Plan (Free Text) Assessment: 28 year old male with past medical history of HIV is admitted for headache. Headache - resolved - Initial CT of head was negative. Repeat CT was also negative - On admission, pt had WBC count of 2.7 (likely due to hx of HIV). Afebrile on admission - On admission, pt received decadron 8 mg IVP, Toradol 30 mg IVP, Mag sulfate 1 gm once, Reglan, Depakote 500 mg IV and IV hydration - Neurology, Dr. Fierro consulted - ID, Dr. Abrams consulted - Will check MRI of brain HIV - Continue home medication: Complera 200/25/300 mg QD - ID, Dr. Abrams consulted Prophylaxis - SCDs, lovenox - no GI prophylaxis indicated All orders and management per Dr. Victor Patient's symptoms resolved. Patient was stable for discharge home. Counselled patient to follow up with infectious disease physician in 1 week. Counselled patient to continue home medications.
[2018-06-21 08:10] VITALS: BP 121/56; PULSE 55; RESP 20; TEMP 98.2; O2SAT 99
[2018-06-21 08:23] LABS: BASO % 0.3 % (0.0-2.0); EOS % 0.6 % (0.0-4.0); HEMOGLOBIN 14.7 g/dL (12.0-18.0); LYMPH # 2.4 K/uL (1.0-4.3); MEAN CELL VOLUME 98.6 fL (80.0-94.0); MEAN CORPUSCULAR HEMOGLOBIN 33.2 pg (27.0-31.0); MEAN CORPUSCULAR HGB CONC 33.6 g/dL (33.0-37.0); MEAN PLATELET VOLUME 8.8 fL (7.2-11.7); MONO # 0.2 K/uL (0.0-0.8); MONO % 5.6 % (0.0-10.0); NEUT # 0.8 K/uL (1.8-7.0); NEUT % 23.5 % (50.0-75.0); NRBC % 0.1 % (0.0-2.0); RBC 4.44 Mil/uL (4.40-5.90); RED CELL DISTRIBUTION WIDTH 12.5 % (11.5-14.5)
[2018-06-21 08:30] LABS: WHITE BLOOD COUNT 3.4 K/uL (4.8-10.8)
[2018-06-21 08:32] LABS: ALB/GLOB RATIO 1.4 (1.0-2.1); ALBUMIN 3.7 g/dL (3.5-5.0); ALT/SGPT 27 U/L (21-72); AST/SGOT 22 U/L (17-59); BLOOD UREA NITROGEN 11 mg/dL (9-20); CALCIUM 8.9 mg/dl (8.6-10.4); GFR NON-AFRICAN AMERICAN > 60
--- NOTE | 2018-06-21 09:13 | HP ---
HISTORY OF PRESENT ILLNESS: Eneida is a 28-year-old male with HIV chief complaint headache, slight dizziness, slight neck stiffness which resolved spontaneously. The patient came to the hospital, advised admission. The patient [facility] to the [facility], the patient missed some followup appointment. PHYSICAL EXAMINATION: GENERAL: The patient is awake, alert, and oriented. VITAL SIGNS: Temperature 98, pulse 90. HEENT: Within normal limits. NECK: Supple. CHEST: Symmetrical. HEART: Regular. ABDOMEN: Soft. EXTREMITIES: No edema. IMPRESSION: He suffers from human immunodeficiency virus, headache. The patient advised bed rest, MRI of the head, Neurology consult and ID consult. Arthur Victor MD
[2018-06-21] MEDS: Enoxaparin 40 mg Syringe SC SCH (10:58)
[2018-06-21 18:05] LABS: % CD4 (T HELPER CELL) 26 Percent (30-61); % CD8 (SUPPRESSOR T CELL) 58 Percent (12-42); ABSOLUTE CD4 CELLS 603 Cells/mcL (490-1740); ABSOLUTE CD8 CELLS 1363 Cells/mcL (180-1170); ABSOLUTE LYMPHOCYTES 2337 Cells/mcL (850-3900); HELPER/SUPPRESSOR RATIO 0.44 Ratio (0.86-5.00)
== END 2018-06-21 11:50 | disposition home or self-care (01) ==
LOC: C.ER 15:30 → C.9E 18:59 → C.5S 19:45
PROVIDERS: ADMIT Internal Medicine Pulmonary Disease; ATTEND Internal Medicine Pulmonary Disease
DX: R51 Headache (principal); B20 Human immunodeficiency virus [HIV] disease; Z72.0 Tobacco use; F12.90 Cannabis use, unspecified, uncomplicated
CPT/HCPCS: 36415; 70450; 70460; 70551; 71046; 80053; 81001; 83735; 84100; 85025; 85610; 85730; 86360; 86403; 86592; 86635; 86695; 86696; 87536; 96360; 96365; 96374; 99285; G0378; J1100; J1650; J1885; J2060; J2765; J3475; J7030; Q9967

== ENCOUNTER 2018-09-15 14:03 | Emergency (ER) | payer BC ==
[2018-09-15 14:21] VITALS: BP 110/68; PULSE 62; TEMP 97.4; O2SAT 100
[2018-09-15] MEDS ORDERED: guaiFENesin 100 mg/5 ml Syrup UD PO STA (14:37)
--- NOTE | 2018-09-15 14:38 | C.PDOC ---
History Of Present Illness 28 year old male presents to the ED complaining of coughing and bodyaches for the last 5 days. Denies any fever, chills, sore throat, ear pain, nausea, vomiting, abdominal pain, diarrhea, or any other associated symptoms. Denies any sick contacts at home. Time Seen by Provider: 09/15/18 14:33 Chief Complaint (Nursing): Flu-like Symptoms History Per: Patient History/Exam Limitations: no limitations Onset/Duration Of Symptoms: Days (5) Associated Symptoms: Cough. denies: Fever, Chills, Sore Throat, Nausea, Vomiting, Diarrhea Ear Symptoms: Bilateral: None Past Medical History Reviewed: Historical Data, Nursing Documentation, Vital Signs Vital Signs: Last Vital Signs Temp 97.4 F L 09/15/18 14:16 Pulse 62 09/15/18 14:16 Resp 20 09/15/18 14:16 BP 110/68 09/15/18 14:16 Pulse Ox 100 09/15/18 14:16 - Medical History PMH: HIV Denies: Chronic Kidney Disease Surgical History: No Surg Hx Family History: States: No Known Family Hx - Social History Hx Tobacco Use: No Hx Alcohol Use: Yes Hx Substance Use: Yes - Immunization History Hx Tetanus Toxoid Vaccination: No Hx Influenza Vaccination: No Hx Pneumococcal Vaccination: No Review Of Systems Except As Marked, All Systems Reviewed And Found Negative. Constitutional: Positive for: Other (bodyaches). Negative for: Fever, Chills ENT: Negative for: Ear Pain, Throat Pain Respiratory: Positive for: Cough Gastrointestinal: Negative for: Nausea, Vomiting, Abdominal Pain, Diarrhea Physical Exam - Physical Exam Appears: Non-toxic, No Acute Distress Skin: Warm, Dry, No Rash Head: Normacephalic Eye(s): bilateral: Normal Inspection Ear(s): Bilateral: Normal Nose: Normal Oral Mucosa: Moist Throat: Normal, No Erythema, No Exudate Neck: Supple Chest: Symmetrical Cardiovascular: Rhythm Regular Respiratory: Normal Breath Sounds, No Rales, No Rhonchi, No Wheezing Gastrointestinal/Abdominal: Soft, No Tenderness Extremity: Bilateral: Atraumatic, Normal Color And Temperature, Normal ROM Neurological/Psych: Oriented x3, Normal Speech Gait: Steady ED Course And Treatment O2 Sat by Pulse Oximetry: 100 (RA) Pulse Ox Interpretation: Normal Medical Decision Making Medical Decision Making: Plan - Robitusin 100mg PO - Motrin 600mg PO On reevaluation, patient reports feeling better. Patient works at the [employer] and is requesting work note till Sunday. Patient given follow up instructions. Instructed to return to ER if symptoms worsen or new symptoms arise. viral syndrome low susp of influenza work note sun Disposition Doctor Will See Patient In The: Office Counseled Patient/Family Regarding: Studies Performed, Diagnosis - Disposition Referrals: [facility] [Outside] [facility] [Outside] [facility] [Outside] [facility] [Outside] Disposition: HOME/ ROUTINE Disposition Time: 14:38 Condition: GOOD Additional Instructions: continue Dayquil/Nyquil (or equivelents) 3-4x/day tylenol/motrin as needed no work until afebrile for 24 hours Instructions: Viral Syndrome (DC) Forms: [employer] (Eritrean), Work Excuse - Clinical Impression Clinical Impression: Influenza-like illness - Scribe Statement The provider has reviewed the documentation as recorded by the Scribeleanor Colindres All medical record entries made by the Scribe were at my direction and personally dictated by me. I have reviewed the chart and agree that the record accurately reflects my personal performance of the history, physical exam, medical decision making, and the department course for this patient. I have also personally directed, reviewed, and agree with the discharge instructions and disposition.
[2018-09-15] MEDS ORDERED: guaiFENesin 100 mg/5 ml Syrup UD ONE (14:45)
[2018-09-15 15:05] VITALS: RESP 18
== END 2018-09-15 15:03 | disposition home or self-care (01) ==
LOC: C.ER 14:03
DX: J11.1 Influenza due to unidentified influenza virus with other respiratory manifestations (principal)